=== PATIENT | male | born 1970 | race Caucasian/White ===

== ENCOUNTER 2025-03-25 15:42 | Outpatient (CLI) | payer OTHER, SELFPAY ==
--- NOTE | ~2025-03-25 | CT_ITS ---
CT sinus wo con Ordering provider: Chi Lawrence M.D. History: . J01.01 - Acute recurrent maxillary sinusitis . Comparison: None. Technique: Thin slice Scans CT of the paranasal sinuses was performed with coronal and sagittal refor matted images. No IV contrast. . Automated exposure control and iterative reconstruction technique w ere employed. The dose-length product was 315.62 mGy-cm. Findings: NASAL SEPTUM: Very mild right nasal septal deviation. OSTEOMEATAL UNITS: Bilaterally patent. NASAL TURBINATES AND NASOPHARYNX: Normal. PARANASAL SINUSES: Bilateral maxillary and ethmoid sinus disease. VISUALIZED MASTOIDS: Normal as visualized. BONES: Normal. SUPERFICIAL SOFT TISSUES/VISUALIZED BRAIN PARENCHYMA: Normal. IMPRESSION: Bilateral maxillary and ethmoid sinus. Mild right nasal septal deviation Reviewed, dictated and finalized at location A.
--- OUTSIDE RECORDS SUMMARY | 2025-03-25 15:45 | XMS_ITS | Encounter Summary ---
Author Organization [facility] Address [address] [place] [place] [address] Care Team Providers Care Shop Estimator Name Role Phone Leon Meadows MD Unavailable [phone] Ghislaine Valencia DO Primary Care Provider [phone] Encounter Details Date Type Department Care Team (Latest Contact Info) Description 03/25/2025 Travel Social History Tobacco Use Types Packs/Day Years Used Date Smoking Tobacco: Never Smokeless Tobacco: Never Alcohol Use Standard Drinks/Week Comments Yes 2 (1 standard drink = 0.6 oz pur e alcohol) PHQ-2 Answer Date Recorded Patient Health Questionnaire-2 Score 1 02/04/2025 Sex and Gender Information Value Date Recorded Sex Assigned at Male 03/25/2022 7:31 PM CDT Legal Sex Male 4:26 PM CDT Gender Identity Male 03/25/2022 7:31 PM CDT Sexual Orientation Not on file documented as of this encounter Plan of Treatment Upcoming Encounters Date Type Department Care Team (Late st Contact Info) Description 04/18/2025 9:20 AM CDT Office Visit [facility] - Dermatology [address] [place] [address], [facility] [place] [address] Joleen Maharaj MD [address] [place] [address] 3 [place] [id number] documented as of this encounter Visit Diagnoses Not on filedocumented in this encounter Care Teams Shop Estimator Relationship Specialty Start Date End Date Ghislaine Valencia DO [address] [place] [phone] PCP - General Family Medicine 10/11/24 Leon Meadows MD [address] [place] [address] Endocrinology 05/29/24 documented as of this encounter
--- OUTSIDE RECORDS SUMMARY | 2025-03-25 15:45 | XMS_ITS | Clinical Summary ---
Author Organization [facility] Address [address] [facility] [address] Care Team Providers Care Conveyor Loader Name Role Phone Leon Meadows MD Unavailable [phone] Ghislaine Valencia DO Primary Care Provider [phone] Source Comments [facility],non-owned Affiliates and Associated Physician Practices is amultiple site organization consisting of ambulatory clinics and hospital sitesin [place], [place], [place] and [place]. This disclosure is being madepursuant to the Care Everywhere program and may not contain all information available regarding this patient. Last updated 18.[facility] Allergies Active Allergy Reactions Criticality Noted Date Comments Adhesive Sensitivity Rash Medium 05/28/2020 Penicillins Urticaria,Rash Medium 05/28/2020 Medications * This document contains information received from the source organization and may not represent a complete record from that organization. * Be aware that medications may not be up to date on this document. Alwaysverify current medications with the patient. lisinopril (PRINIVIL; ZESTRIL) 30 MG tabletIndications :BMI 32.0-32.9,adult Take 1 (one) tablet by mouth once daily Active Cholecalciferol (VITAMIN D PO)Indications:BM I 32.0-32.9,adult Take 5,000 Units by mouth once daily Active atorvastatin (LIPITOR) 40 MG tablet Take 1 (one) tablet by mouth once daily 0 Active famotidine (PEPCID) 40 MG tablet Take 2 (two) tablets by mouth 2 times daily 2 Active metroNIDAZOLE (Metrogel) 0.75 % gelIndications:Ro sacea Apply to face twice daily for pimples. 30 days supply. Reasons: Rosacea 45 g 2 2 Active fluorouracil (Efudex) 5 % creamIndications: Actinic keratosis Apply to face twice daily for 2 weeks. 14 day supply. 40 g 4 Active lisdexamfetamine (Vyvanse) 50 MG capsuleIndication s:ADHD (attention deficit hyperactivity disorder) evaluation Take 1 (one) capsule by mouth every morning 30 capsule 5 Active lisdexamfetamine (Vyvanse) 50 MG capsuleIndication s:ADHD (attention deficit hyperactivity disorder) evaluation Take 1 (one) capsule by mouth every morning 30 capsule 5 03/02/20 25 Discontinu ed(Reorder ) lisdexamfetamine (Vyvanse) 50 MG capsuleIndication s:ADHD (attention deficit hyperactivity disorder) evaluation Take 1 (one) capsule by mouth every morning 30 capsule 5 03/25/20 25 Discontinu ed(Reorder ) Active Problems Problem Noted Date Diagnosed Date Low testosterone in male 07/21/2023 ADHD (attention deficit hyperactivity disorder) evaluation 02/24/2023 Chronic rhinitis 11/24/2021 HTN (hypertension) 05/31/2018 HLD (hyperlipidemia) 05/31/2018 BMI 32.0-32.9,adult 05/31/2018 Encounters * This document contains information received from the source organization and may not represent a complete record from that organization. Date Type Department Care Team Description 03/25/2025 Travel 02/04/2025 Travel 12/31/2024 Travel from Last 3 Months Immunizations Immunization Administration Dates Next Due INFLUENZA VACCINE 09/11/2021 Family History Medical History Relation Name Comments None Known Brother None Known Father None Known Maternal Aunt CAD (Coronary Artery Disease) Maternal Grandfather CAD (Coronary Artery Disease) Maternal Grandmother None Known Maternal Uncle Hypertension Mother Thyroid Disease Mother None Known Other None Known Paternal Aunt CAD (Coronary Artery Disease) Paternal Grandfather None Known Paternal Grandmother None Known Paternal Uncle None Known Sister Asthma Neg Hx CVA Neg Hx Cancer - Breast Neg Hx Cancer - Other Neg Hx Cancer - Skin, Melanoma Neg Hx Cancer - Skin, Non Melanoma Neg Hx Eczema Neg Hx Hemophilia Neg Hx Psoriasis Neg Hx Relation Name Status Comments Brother Father Maternal Aunt Maternal Grandfather Maternal Grandmother Maternal Uncle Mother Other Paternal Aunt Paternal Grandfather Paternal Grandmother Paternal Uncle Sister Social History Tobacco Use Types Packs/Day Years Used Date Smoking Tobacco: Never Smokeless Tobacco: Never Tobacco Cessation:Counseling Given: Not Answered Alcohol Use Standard Drinks/Week Comments Yes 2 (1 standard drink = 0.6 oz pur e alcohol) PHQ-2 Answer Date Recorded Patient Health Questionnaire-2 Score 1 02/04/2025 Sex and Gender Information Value Date Recorded Sex Assigned at Male 03/25/2022 7:31 PM CDT Legal Sex Male 4:26 PM CDT Gender Identity Male 03/25/2022 7:31 PM CDT Sexual Orientation Not on file Last Filed Vital Signs Vital Sign Reading Time Taken Comments Blood Pressure 135/81 02/04/2025 1:01 PM CDT Pulse 89 02/04/2025 1:01 PM CDT Temperature 35.9 C (96.7 F) 12/21/2023 1:52 PM CDT Respiratory Rate - - Oxygen Saturation 100% 02/04/2025 1:01 PM CDT Inhaled Oxygen Concentration - - Weight 105.2 kg (232 lb) 02/04/2025 1:01 PM CDT Height 195.6 cm (6' 5) 08/20/2024 9:23 AM MIXER DIAMOND POWDER Body Mass Index 27.51 08/20/2024 9:23 AM MIXER DIAMOND POWDER Plan of Treatment Upcoming Encounters Date Type Department Care Team (Late st Contact Info) Description 04/18/2025 9:20 AM CDT Office Visit [facility] - Dermatology [address] [place] [address], [place] [phone] Joleen Maharaj MD [address] [place] [address] 3 [place] [phone] Health Maintenance Due Date Last Done Comments COLOGUARD (AGES 45-75) - COL ON CA SCREENING 1969 COLON MONITORING 1969 COLONOSCOPY - COLON CA SCREENING 1969 CT COLONOGRAPHY - COLON CA SCREENING 1969 Colorectal Cancer Screening 1969 FIT - COLON CA SCREENING 1969 FLEX SIG - COLON CA SCREENING 1969 HIV SCREENING 1984 HEPATITIS C SCREENING 06/13/1987 DTAP/TDAP/TD VACCINES (1 - Tdap) 1988 HEPATITIS B VACCINE (1 of 3 - 19+ 3-dose series) 1988 PNEUMOCOCCAL VACCINE 50+ (1 of 1 - PCV) 2019 ZOSTER VACCINE (1 of 2) 2019 COVID-19 VACCINE (1 - 2023-2 5 season) 2024 SCREENING FOR DIABETES 04/01/2025 2, 04/01/2022, 05/31/2018 INFLUENZA VACCINE (#1) 2025 3, 09/11/2021 DEPRESSION SCREENING Completed 10/01/2024, 08/20/2024 HIB VACCINE Aged Out No longer eligi ble based on patient's age to complete this topic HPV VACCINE Aged Out No longer eligi ble based on patient's age to complete this topic MENINGOCOCCAL (Group B) VACCINE SHARED DECISION-MAKING Aged Out No longer eligible based on patient's age to complete this topic MENINGOCOCCAL GROUPS A/C/Y/W VACCINE Aged Out No longer eligible b ased on patient's age to complete this topic Procedures Procedure Name Priority Date/Time Associated Diagnosis Comments HEMOGLOBIN A1C - POINT OF CARE (AMB) Routine 05/31/2018 BMI 32.0-32.9,adult from Last 3 Months or Most Recently Relevant to Health Maintenance Results * HEMOGLOBIN A1C - POINT OF CARE (AMB) (05/31/2018) Hemoglobin A1c POCT 5.3 % QC Verified Yes Blood BLOOD SPECIMEN / Unknown 05/31/2018 us Poncho Rebollar MD LAB - POINT OF CARE ORDERABLES F inal Result from Last 3 Months or Most Recently Relevant to Health Maintenance Insurance [facility] Care Teams Conveyor Loader Relationship Specialty Start Date End Date Ghislaine Valencia DO [address] [place] [address] PCP - General Family Medicine 10/11/24 Leon Meadows MD [address] [place] [address] Endocrinology 05/29/24
--- OUTSIDE RECORDS SUMMARY | 2025-03-25 15:45 | XMS_ITS | Encounter Summary ---
Author Organization [facility] Address [address] [facility] [place] [address] Care Team Providers Care Tagman Name Role Phone Leon Meadows MD Unavailable [phone] Ghislaine Valencia DO Primary Care Provider Encounter Details Date Type Department Care Team (Late st Contact Info) Description 10/29/2024 Telephone [facility] - Dermatology [address] [place] [address] [place] [phone] None, Physician [address] [place] [address] Social History Tobacco Use Types Packs/Day Years Used Date Smoking Tobacco: Never Smokeless Tobacco: Never Alcohol Use Standard Drinks/Week Comments Yes 2 (1 standard drink = 0.6 oz pur e alcohol) PHQ-2 Answer Date Recorded Patient Health Questionnaire-2 Score 1 10/01/2024 Sex and Gender Information Value Date Recorded Sex Assigned at Male 03/25/2022 7:31 PM CDT Legal Sex Male 4:26 PM CDT Gender Identity Male 03/25/2022 7:31 PM CDT Sexual Orientation Not on file documented as of this encounter Miscellaneous Notes * Telephone Encounter - Tiara Tucker - 10/29/2024 8:23 AM CST left message to see if pt would like to come in earlier for the excision w/ Dr. Martinez. 1p>11a - 10/29/2024. Left direct number. ITY BILL COLLECTOR documented in this encounter Plan of Treatment Upcoming Encounters Date Type Department Care Team (Late st Contact Info) Description 04/18/2025 9:20 AM CDT Office Visit [facility] - Dermatology [address] [facility], [place] [address] Joleen Maharaj MD [address] [facility] 3L [place] [address] documented as of this encounter Visit Diagnoses Not on filedocumented in this encounter Care Teams Tagman Relationship Specialty Start Date End Date Ghislaine Valencia DO [address] [place] [address] PCP - General Family Medicine 10/11/24 Leon Meadows MD [address] [place] [address] 2L Div [place] [address] Endocrinology 05/29/24 documented as of this encounter
--- OUTSIDE RECORDS SUMMARY | 2025-03-25 15:46 | XMS_ITS | Clinical Summary ---
Author Organization [facility] Address [address] [place] [address] Care Team Providers Care Transportation Mechanic Name Role Phone Ghislaine Valencia DO Primary Care Provider [phone] Allergies Active Allergy Reactions Criticality Noted Date Comments Adhesive Rash Medium 05/28/2020 Penicillins Itching,Agitation Low 11/24/2021 Medications lisinopriL (PRINIVIL,ZESTR IL) 30 mg tablet Take 1 tablet (30 mg total) by mouth daily Active atorvastatin (LIPITOR) 40 mg tablet Take 1 tablet (40 mg total) by mouth daily 0 Active ergocalciferol, vitamin D2, (VITAMIN D2 ORAL) Take by mouth 5000iu qd Active ketoconazole (NIZORAL) 2 % shampoo prn 1 Active fluorouraciL (EFUDEX) 5 % cream Apply to thin layer to face twice daily for two weeks. Reasons: Actinic Keratosis 1 Active famotidine (PEPCID) 40 mg tablet 3 Active lisdexamfetamin e (VYVANSE) 40 mg capsule Take 1 capsule (40 mg total) by mouth early learning teacher before breakfast 5 Active buPROPion XL (WELLBUTRIN XL) 150 mg 24 hr tablet Take 1 tablet (150 mg total) by mouth daily 5 Active testosterone micronized, bulk, 100 % powder 0 5 Active Active Problems Problem Noted Date Diagnosed Date Chronic rhinitis 11/24/2021 Adverse food reaction 11/24/2021 HLD (hyperlipidemia) 05/31/2018 HTN (hypertension) 05/31/2018 Encounters Date Type Department Care Team Description 01/29/2025 1:30 PM CDT Office Visit [facility] Gastroenterology [address] [facility] Medical Office Building [address] [place] [address] Denise Denton MD Adverse food reaction, subsequent encounter (Primary Dx); Heartburn from Last 3 Months Surgical History Surgery Date Site/Laterality Comments KNEE SURGERY Medical History Medical History Date Comments Dahl's palsy Family History Medical History Relation Name Comments Thyroid disease Mother Relation Name Status Comments Mother Social History Tobacco Use Types Packs/Day Years Used Date Smoking Tobacco: Never Smokeless Tobacco: Never Tobacco Cessation:Counseling Given: Not Answered AUDIT-C Answer Date Recorded Q1: How often do you have a drink containing alc ohol? 2-3 times a week 01/29/2025 Q2: How many drinks containi ng alcohol do you have on a typical day when you are drinking? 1 or 2 01/29/2025 Q3: How often do you have si x or more drinks on one occasion? Never 01/29/2025 Sex and Gender Information Value Date Recorded Sex Assigned at Not on file Legal Sex Male 8:45 AM CDT Gender Identity Male 03/05/2025 9:46 AM CDT Sexual Orientation Straight 03/05/2025 9: 46 AM CDT Obstetrics History Last Filed Vital Signs Vital Sign Reading Time Taken Comments Blood Pressure 121/74 01/29/2025 1:14 PM CDT Pulse 72 01/29/2025 1:14 PM CDT Temperature 36.6 C (97.9 F) 01/29/2025 1:14 PM CDT Respiratory Rate 18 11/24/2021 8:34 AM GRAZING AIDE Oxygen Saturation 100% 01/29/2025 1:14 PM CDT Inhaled Oxygen Concentration - - Weight 106.6 kg (235 lb) 01/29/2025 1:14 PM CDT Height 195.6 cm (6' 5) 01/29/2025 1:14 PM CDT Body Mass Index 27.87 01/29/2025 1:14 PM CDT Plan of Treatment Health Maintenance Due Date Last Done Comments Colon Cancer Screening-Colonoscopy 1969 Depression Screening 1969 Hepatitis C Screening 1969 Prostate Cancer Screening-PSA 1969 DTaP/Tdap/Td Vaccine (1 - Tdap) 1980 Hepatitis B Screening 1987 Regular Well Visit/Exam 18-64 1987 Zoster Vaccine (1 of 2) 2019 Covid-19 Vaccine (4 - season) 2024 08/25/2021, 01/21/2021, 12/24/2020 Influenza Vaccine Completed 07/26/2024, , 09/10/2021, Additional history exists Pneumococcal vaccine <65 Aged Out No longer eligible based on patient's age to complete this topic Insurance [facility] Care Teams Transportation Mechanic Relationship Specialty Start Date End Date Ghislaine Valencia DO [address] [place] [id number] PCP - General Family Medicine 03/17/25
--- OUTSIDE RECORDS SUMMARY | 2025-03-25 15:46 | XMS_ITS | Referral Summary ---
Author Organization [facility] Address [address] [place] [address] Care Team Providers Care Taker Out Name Role Phone Ghislaine Valencia DO Primary Care Provider [phone] Encounters Date Type Department Care Team Description 01/29/2025 1:30 PM CDT Office Visit [facility] Gastroenterology [address] [place] [address] Medical Office Building [address] [place] [address] Denise Denton MD Adverse food reaction, subsequent encounter (Primary Dx); Heartburn from Last 3 Months Allergies Active Allergy Reactions Criticality Noted Date [...] 1 capsule (40 mg total) by mouth entertainment manager before breakfast 5 Active buPROPion XL (WELLBUTRIN XL) 150 mg 24 hr tablet Take 1 tablet (150 mg total) by mouth daily 5 Active testosterone micronized, bulk, 100 % powder 0 5 Active Active Problems Problem Noted Date Diagnosed Date Chronic rhinitis 11/24/2021 Adverse food reaction 11/24/2021 HLD (hyperlipidemia) 05/31/2018 HTN (hypertension) 05/31/2018 Social History Tobacco Use Types Packs/Day Years [...] Orientation Straight 03/05/2025 9: 46 AM CDT Last Filed Vital Signs Vital Sign Reading Time Taken Comments Blood Pressure 121/74 01/29/2025 1:14 PM CDT Pulse 72 01/29/2025 1:14 PM CDT Temperature 36.6 C (97.9 F) 01/29/2025 1:14 PM CDT Respiratory Rate 18 11/24/2021 8:34 AM BOX REPAIRER Oxygen Saturation 100% 01/29/2025 1:14 PM CDT Inhaled Oxygen Concentration - - Weight 106.6 kg (235 lb) 01/29/2025 1:14 PM CDT Height 195.6 cm (6' 5) 01/29/2025 1:14 PM CDT Body Mass Index 27.87 01/29/2025 1:14 PM CDT Plan of Treatment Not on file Insurance [facility] Member Subscriber Plan / Payer (Ef fective 2017-Present) Name:Jeffy Yoo Relation to Subscriber:Self Name:Jeffy Yoo Payer ID:[id number] (NAIC) Type:MEDICAID RISK OTHER Address: [place] [id number] Care Teams Taker Out Relationship Specialty Start Date End Date Ghislaine Valnecia DO [address] [place] [address] PCP - General Family Medicine 03/17/25
--- OUTSIDE RECORDS SUMMARY | 2025-03-25 15:46 | XMS_ITS | Encounter Summary ---
Author Organization [facility] Address [address] [place] [address] Phone Care Team Providers Care Clay Digger Name Role Phone Adolfo Carnes Primary Care Provider [phone] Jeanie Chan MD Primary Care Provider [phone] Adolfo Carnes Primary Care Provider [phone] No, Physician Primary Care Provider Ghislaine Valencia DO Primary Care Provider Encounter Details Date Type Department Care Team (Late st Contact Info) Description 06/22/2021 Orders Only [facility] Scanning, Provider Social History Tobacco Use Types Packs/Day Years Used Date Smoking Tobacco: Never Assessed Sex and Gender Information Value Date Recorded Sex Assigned at Not on file Legal Sex Male 8:45 AM CDT Gender Identity Male 03/05/2025 9:46 AM CDT Sexual Orientation Straight 03/05/2025 9: 46 AM CDT documented as of this encounter Plan of Treatment Not on file documented as of this encounter Procedures Procedure Name Priority Date/Time Associated Diagnosis Comments GI - RESULT 06/22/2021 documented in this encounter Results * GI - RESULT (06/22/2021) Anatomical Region Laterality Modality Other us Provider Scanning Final Result documented in this encounter Visit Diagnoses Not on filedocumented in this encounter Care Teams Clay Digger Relationship Specialty Start Date End Date Adolfo Carnes PA PCP - General Physician Gumming Machine Operator 09/13/21 11/24/21 Jeanie Chan MD [address] [facility] [address] [place] [address] PCP - General 11/25/21 03/10/22 Adolfo Carnes PA PCP - General Physician Gumming Machine Operator 03/11/22 06/20/24 No, Physician PCP - General 01/29/25 03/16/25 Ghislaine Valencia DO [address] [place] [address] PCP - General Family Medicine 03/17/25 documented as of this encounter
== END 2025-03-25 15:43 | disposition home or self-care (01) ==
PROVIDERS: PCP Family Medicine; Visit Provider Otolaryngology
DX: J01.01 Acute recurrent maxillary sinusitis (principal); J30.9 Allergic rhinitis, unspecified; J34.2 Deviated nasal septum
CPT/HCPCS: 70486

== ENCOUNTER 2025-04-22 15:22 | Outpatient (NON) | payer OTHER, SELFPAY ==
--- OUTSIDE RECORDS SUMMARY | 2025-04-22 15:25 | XMS_ITS | Encounter Summary ---
Author Organization [facility] Address [address] [place] [address] Phone Care Team Providers Care Can Piler Name Role Phone Adolfo Carnes Primary Care Provider [phone] Jeanie Chan MD Primary Care Provider Adolfo Carnes Primary Care Provider [phone] No, Physician Primary Care Provider Ghislaine Valencia DO Primary Care Provider [phone] Encounter Details Date Type Department Care Team [...] on filedocumented in this encounter Care Teams Can Piler Relationship Specialty Start Date End Date Adolfo Carnes PA PCP - General Physician Commercial Attache 09/13/21 11/24/21 Jeanie Chan MD [address] [facility] [address] [place] [address] PCP - General 11/25/21 03/10/22 Adolfo Carnes PA PCP - General Physician Commercial Attache 03/11/22 06/20/24 No, Physician PCP - General 01/29/25 03/16/25 Ghislaine Valencia DO [address] [place] [address] PCP - General Family Medicine 03/17/25 documented as of this encounter
--- OUTSIDE RECORDS SUMMARY | 2025-04-22 15:25 | XMS_ITS | Referral Summary ---
Author Organization [facility] Address [address] [place] [address] Care Team Providers Care Merchandise Buyer Name Role Phone Ghislaine Valencia DO Primary Care Provider [phone] Encounters Date Type Department Care Team Description 01/29/2025 1:30 PM CDT Office Visit [facility] Gastroenterology [address] [place] [address] Medical Office Building [address] [place] [address] Denise Denton MD Adverse food [...] 1 capsule (40 mg total) by mouth cds sales advisor before breakfast 5 Active buPROPion XL (WELLBUTRIN [...] CDT Respiratory Rate 18 11/24/2021 8:34 AM MEDIA PLANNER / BUYER Oxygen Saturation 100% 01/29/2025 1:14 PM CDT Inhaled Oxygen Concentration - - Weight 106.6 kg (235 lb) 01/29/2025 1:14 PM CDT Height 195.6 cm (6' 5) 01/29/2025 1:14 PM CDT Body Mass Index 27.87 01/29/2025 1:14 PM CDT Plan of Treatment Not on file Insurance [facility] Member Subscriber Plan / Payer (Ef fective 2017-Present) Name:Jeffy Yoo Relation to Subscriber:Self Name:Jeffy Yoo Payer ID:[id number] (NAIC) Type:MEDICAID RISK OTHER Address: [place] [id number] Care Teams Merchandise Buyer Relationship Specialty Start Date End Date Ghislaine Valencia DO [address] [place] [address] PCP - General Family Medicine 03/17/25
--- OUTSIDE RECORDS SUMMARY | 2025-04-22 15:25 | XMS_ITS | Encounter Summary ---
Author Organization [facility] Address [address] [facility] [place] [address] Care Team Providers Care Debug Technician Name Role Phone Leon Meadows MD Unavailable [phone] Ghislaine Valencia DO Primary Care Provider [phone] Encounter Details Date Type Department Care Team (Late st Contact Info) Description 10/29/2024 Telephone [facility] - Dermatology [address] [place] [address] [place] [id number] None, Physician [address] [place] [address] Social History Tobacco Use Types Packs/Day Years [...] Martinez. 1p>11a - 10/29/2024. Left direct number. UATOR documented in this encounter Plan of Treatment Upcoming Encounters Date Type Department Care Team (Late st Contact Info) Description 10/03/2025 10:40 AM EVALUATOR Office Visit [facility] - Dermatology [address] [facility], [place] [phone] Joleen Maharaj MD [address] [facility] 3L [place] [phone] documented as of this encounter Visit Diagnoses Not on filedocumented in this encounter Care Teams Debug Technician Relationship Specialty Start Date End Date Ghislaine Valencia DO [address] [place] [id number] PCP - General Family Medicine 10/11/24 Leon Meadows MD [address] [place] [address] 2L [place] [address] Endocrinology 05/29/24 documented as of this encounter
--- OUTSIDE RECORDS SUMMARY | 2025-04-22 15:25 | XMS_ITS | Clinical Summary ---
Author Organization [facility] Address [address] [place] [address] Care Team Providers Care Washtub Worker Name Role Phone Ghislaine Valencia DO Primary Care Provider [phone] Allergies Active Allergy Reactions Criticality Noted Date [...] Description 01/29/2025 1:30 PM CDT Office Visit [facility] Gastroenterology [address] [facility] Medical Office Building [address] [place] [address] Denise Denton MD Adverse food [...] CDT Respiratory Rate 18 11/24/2021 8:34 AM PRINT BINDING WORKER Oxygen Saturation 100% 01/29/2025 1:14 PM CDT [...] season) 2024 08/25/2021, 01/21/2021, 12/24/2020 Influenza Vaccine (#1) 2025 , 09/11/2021, 09/10/2021, Additional history exists Pneumococcal vaccine <65 Aged Out No longer eligible based on patient's age to complete this topic Insurance [facility] Member Subscriber Plan / Payer (Ef fective 2017-Present) Name:Jeffy Yoo Relation to Subscriber:Self Name:Jeffy Yoo Payer ID:[id number] (NAIC) Type:MEDICAID RISK OTHER Address: [place] [id number] [facility] Care Teams Washtub Worker Relationship Specialty Start Date End Date Ghislaine Valencia DO [address] [place] [address] PCP - General Family Medicine 03/17/25
--- OUTSIDE RECORDS SUMMARY | 2025-04-22 15:25 | XMS_ITS | Clinical Summary ---
Author Organization [facility] Address [address] [place] [address] Care Team Providers Care Real Estate Attorney Name Role Phone Leon Meadows MD Unavailable [phone] Ghislaine Valencia DO Primary Care Provider [phone] [facility],non-owned Affiliates and Associated Physician Practices is amultiple site organization consisting of ambulatory clinics and hospital sitesin [place], [place], [place] and [place]. This disclosure is being madepursuant to the Care Everywhere program and may not contain all information available regarding this patient. Last updated 18.[facility] Allergies Active Allergy Reactions Criticality Noted [...] organization. Date Type Department Care Team Description 04/18/2025 9:20 AM CDT Office Visit [facility] - Dermatology [address] [place] [address] [place] [address] Joleen Maharaj MD Neoplasm of uncertain behavior of skin (Primary Dx); History of basal cell carcinoma; Actinic keratosis; Lentigines; Multiple benign nevi of upper extremity, lower extremity, and trunk; Seborrheic keratoses 04/18/2025 Travel 03/25/2025 Travel 02/04/2025 Travel from Last 3 Months Immunizations Immunization [...] Answer Date Recorded Patient Health Questionnaire-2 Score 2 03/25/2025 Sex and Gender Information Value Date Recorded [...] 195.6 cm (6' 5) 08/20/2024 9:23 AM GLASS SAGGER Body Mass Index 27.51 08/20/2024 9:23 AM GLASS SAGGER Plan of Treatment Upcoming Encounters Date Type Department Care Team (Late st Contact Info) Description 10/03/2025 10:40 AM GLASS SAGGER Office Visit [facility] - Dermatology [address] [place] [address], [place] [address] Joleen Maharaj MD [address] [place] [address] [address] [place] [phone] Health Maintenance Due Date Last Done Comments [...] Procedure Name Priority Date/Time Associated Diagnosis Comments TN TANGNTL BX SKIN SINGLE LES Routine 04/18/2025 12:05 PM CDT Neoplasm of uncertain behavior of skin TN DESTROY PREMALIG LESION, 2-14 Routine 04/18/2025 12:04 PM CDT Actinic keratosis TN DESTROY PREMALIG LESION, 1ST LESION Routine 04/18/2025 12:04 PM CDT Actinic keratosis DERMATOPATHOLOGY Routine 04/18/2025 10:0 0 AM CDT Neoplasm of uncertain behavior of skin HEMOGLOBIN A1C - POINT OF CARE (AMB) Routine 05/31/2018 BMI 32.0-32.9,adult from Last 3 Months or Most Recently Relevant to Health Maintenance Results * DERMATOPATHOLOGY (04/18/2025 10:00 AM CDT) Case Report Dermatopathology Report Case: [id number] Authorizing Provider: Joleen Maharaj, Collected: 04/18/2025 10:00 AM Ordering Location: [facility] - Received: 04/18/2025 10:00 AM Dermatology Pathologist: Johanna Rubio MD Specimen: Skin, left cheek 2:48 PM CDT DERMATOPATHOLOGY LABORATORY Final Diagnosis Specimen A. 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 The specimen consists of a shave biopsy measuring 8x5x1 mm. Jar 0. 2:48 PM CDT DERMATOPATHOLOGY LABORATORY Microscopic Description Specimen A. SKIN, left cheek: The epidermis shows parakeratosis, full thickness disorderly maturation of keratinocytes, mitoses at different levels, and dyskeratotic cells. In some foci, there is loss of cohesion between the neoplastic cells, as well as individual dyskeratotic cells that lack intercellular bridges. 2:48 PM CDT DERMATOPATHOLOGY LABORATORY Disclaimer An external and internal positive and negative controls are appropriate for the histochemical, immunohistochemical and immunofluorescence stain(s) in this case (if any), except where stated explicitly. The performance characteristics of the stain(s) cited in this report were developed and its performance characteristic determined by the Dermatopathology Laboratory at [facility], directed by Dr. Regine He. These tests need not be, and therefore are not, approved by the [place] Food and Drug Administration. The tests are used for clinical purposes. Billing Codes Specimen Charges Stain Charges 45355 1 2:48 PM CDT DERMATOPATHOLOGY LABORATORY Embedded Images 2:48 PM CDT DERMATOPATHOLOGY LABORATORY Pathology/Cytolo gy TISSUE SPECIMEN FROM SKIN / Unknown Collection / Unknown 04/18/2025 10:00 AM CDT 04/18/2025 10:00 AM CDT us Joleen Maharaj MD LAB - PATHOLOGY/CYTOLO GY ORDERABLES Final Result DERMATOPATHOLOGY LABORATORY [facility] - Department of Dermatology [address] [place] [place] [id number] [place] [address] * HEMOGLOBIN A1C - POINT OF CARE (AMB) (05/31/2018) Hemoglobin A1c POCT 5.3 % QC Verified Yes Blood BLOOD SPECIMEN / Unknown 05/31/2018 us Poncho Rebollar MD LAB - POINT OF CARE ORDERABLES F inal Result from Last 3 Months or Most Recently Relevant to Health Maintenance Insurance [facility] Care Teams Real Estate Attorney Relationship Specialty Start Date End Date Ghislaine Valencia DO [address] [place] [address] PCP - General Family Medicine 10/11/24 Leon Meadows MD [address] [place] [address] Endocrinology 05/29/24
== END 2025-04-22 15:23 | disposition home or self-care (01) ==
LOC: ANHGOSHLAB 15:23
PROVIDERS: PCP Family Medicine; Visit Provider Otolaryngology
DX: J32.2 Chronic ethmoidal sinusitis (principal); J01.01 Acute recurrent maxillary sinusitis
CPT/HCPCS: 87070; 87101

== ENCOUNTER 2025-05-21 09:37 | Outpatient (NON) | payer OTHER, SELFPAY ==
--- OUTSIDE RECORDS SUMMARY | 2025-05-21 09:53 | XMS_ITS | Clinical Summary ---
Author Organization [facility] Address [address] [place] [address] Care Team Providers Care Sat Tutor Name Role Phone Ghislaine Valencia DO Primary Care Provider [phone] Allergies Active Allergy Reactions Criticality Noted Date Comments Adhesive Rash Medium 05/28/2020 Penicillins Itching,Agitation Low 11/24/2021 Medications lisinopriL (PRINIVIL,ZESTR IL) 30 mg tablet Take 1 tablet (30 mg total) by mouth daily Active atorvastatin (LIPITOR) 40 mg tablet Take 1 tablet (40 mg total) by mouth daily 05/03/20 20 Active ergocalciferol, vitamin D2, (VITAMIN D2 ORAL) Take by mouth 5000iu qd Active ketoconazole (NIZORAL) 2 % shampoo prn 09/10/20 21 Active fluorouraciL (EFUDEX) 5 % cream Apply to thin layer to face twice daily for two weeks. Reasons: Actinic Keratosis 06/04/20 21 Active lisdexamfetamin e (VYVANSE) 40 mg capsule Take 1 capsule (40 mg total) by mouth heavy repairer before breakfast 01/01/20 25 Active buPROPion XL (WELLBUTRIN XL) 150 mg 24 hr tablet Take 1 tablet (150 mg total) by mouth daily 01/01/20 25 Active testosterone micronized, bulk, 100 % powder 0 12/25/19 25 Active cetirizine (ZyrTEC) 10 mg tabletIndicatio ns:Allergic rhinitis, unspecified seasonality, unspecified trigger Take 1 tablet (10 mg total) by mouth 3 (three) times a day 90 tablet 1 05/06/20 25 Active famotidine (PEPCID) 20 mg tabletIndicatio ns:Allergic rhinitis, unspecified seasonality, unspecified trigger Take 1 tablet (20 mg total) by mouth 2 (two) times a day 60 tablet 3 05/06/20 25 026 Active famotidine (PEPCID) 40 mg tablet 11/17/19 23 025 Discontinued cetirizine (ZyrTEC) 10 mg tablet Take 1 tablet (10 mg total) by mouth daily 025 Discontinued Active Problems Problem Noted Date Diagnosed Date Chronic rhinitis 11/24/2021 Adverse food reaction 11/24/2021 HLD (hyperlipidemia) 05/31/2018 HTN (hypertension) 05/31/2018 Encounters Date Type Department Care Team Description 05/12/2025 Results Follow-Up [facility] [place] [address] [facility] [address] [place] [phone] Jeyson Calhoun MD PhD CBC with auto differential, Comprehensive metabolic panel, Tryptase, Additional followed-up results: 30 05/06/2025 3:15 PM CDT Lab [facility] at the [address] [phone] 05/06/2025 3:00 PM CDT Lab [facility] at [address] [phone] Allergic rhinitis, unspecified seasonality, unspecified trigger; Brain fog; Fatigue, unspecified type 05/06/2025 2:00 PM CDT Office Visit [facility] [address] [place] [phone] Jeyson Calhoun MD PhD Brain fog (Primary Dx); Fatigue, unspecified type; Allergic rhinitis, unspecified seasonality, unspecified trigger; Allergic conjunctivitis of both eyes 05/05/2025 Telephone [facility] [address] [place] [phone] Jeyson Calhoun MD PhD from Last 3 Months Immunizations Immunization Administration Dates Next Due Influenza, Quadrivalent, Spl it, Intramuscular 07/08/2019 Influenza, Quadrivalent, Spl it, Preservative Free, Intramuscular 07/21/2023,08/24/2022,09/10/2021 Influenza, Trivalent, Preser vative Free, Intramuscular 07/30/2024 Influenza, Unspecified 07/26/2024,09/11/2021 ZOSTER Recombinant 03/06/2024,01/04/2024 Surgical History Surgery Date Site/Laterality Comments KNEE [...] Sign Reading Time Taken Comments Blood Pressure 137/83 05/06/2025 1:42 PM CDT Pulse 80 05/06/2025 1:42 PM CDT Temperature 36.4 C (97.6 F) 05/06/2025 1:42 PM CDT Respiratory Rate 18 11/24/2021 8:34 AM 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 Saturation 100% 05/06/2025 1:42 PM CDT Inhaled Oxygen Concentration - - Weight 99.3 kg (219 lb) 05/06/2025 1:42 PM CDT Height 195.6 cm (6' 5) 05/06/2025 1:42 PM CDT Body Mass Index 25.97 05/06/2025 1:42 PM CDT Plan of Treatment Health Maintenance Due Date Last Done Comments Colon Cancer Screening-Colonoscopy 1969 Depression Screening 1969 Hepatitis C Screening 1969 Prostate Cancer Screening-PSA 1969 DTaP/Tdap/Td Vaccine (1 - Tdap) 1980 Hepatitis B Screening 1987 Regular Well Visit/Exam 18-64 1987 Covid-19 Vaccine ( - 2023- season) 2024 07/20/2023, 05/05/2022, 08/25/2021, Additional history exists Influenza Vaccine (#1) 2025 , 07/26/2024, 07/21/2023, Additional history exists Zoster Vaccine Completed 03/06/2024, 01/04/2024 Pneumococcal vaccine <65 Aged Out No longer eligible based on patient's age to complete this topic Procedures Procedure Name Priority Date/Time Associated Diagnosis Comments BLOOD MISC TO [place] Routine 05/06/2025 3: 17 PM CDT Brain fog EGFR Routine 05/06/2025 3:16 PM CDT Fatigue, unspecified type Brain fog DIFFERENTIAL AUTO Routine 05/06/2025 3:1 6 PM CDT Fatigue, unspecified type Brain fog TRYPTASE Routine 05/06/2025 3:16 PM CDT Fatigue, unspecified type Brain fog COMPREHENSIVE METABOLIC PANEL Routine 05/06/2025 3:16 PM CDT Fatigue, unspecified type Brain fog CBC WITH AUTO DIFFERENTIAL Routine 05/06/2025 3:16 PM CDT Fatigue, unspecified type Brain fog ALLERGEN BIRCH COMMON SILVER (TREE) IGE Routine 05/06/2025 3:16 PM CDT Allergic rhinitis, unspecified seasonality, unspecified trigger ALLERGEN ELM (TREE) IGE Routine 05/06/20 25 3:16 PM CDT Allergic rhinitis, unspecified seasonality, unspecified trigger ALLERGEN MAPLE/BOX ELDER (TREE) IGE Routine 05/06/2025 3:16 PM CDT Allergic rhinitis, unspecified seasonality, unspecified trigger ALLERGEN MOUNTAIN JUNIPER (TREE) IGE Routine 05/06/2025 3:16 PM CDT Allergic rhinitis, unspecified seasonality, unspecified trigger ALLERGEN MULBERRY (TREE) IGE Routine 05/06/2025 3:16 PM CDT Allergic rhinitis, unspecified seasonality, unspecified trigger ALLERGEN OAK RED (TREE) IGE Routine 05/06/2025 3:16 PM CDT Allergic rhinitis, unspecified seasonality, unspecified trigger ALLERGEN SYCAMORE SOUTH AFRICAN (TREE) IGE Routine 05/06/2025 3:16 PM CDT Allergic rhinitis, unspecified seasonality, unspecified trigger ALLERGEN WALNUT (TREE) IGE Routine 05/06/2025 3:16 PM CDT Allergic rhinitis, unspecified seasonality, unspecified trigger ALLERGEN BERMUDA GRASS (GRASS) IGE Routine 05/06/2025 3:16 PM CDT Allergic rhinitis, unspecified seasonality, unspecified trigger ALLERGEN MELIDA GRASS (GRASS) IGE Routine 05/06/2025 3:16 PM CDT Allergic rhinitis, unspecified seasonality, unspecified trigger ALLERGEN ROBERTO GRASS (GRASS) IGE Routine 05/06/2025 3:16 PM CDT Allergic rhinitis, unspecified seasonality, unspecified trigger ALLERGEN PLANTAIN MONGOLIAN (WEED) IGE Routine 05/06/2025 3:16 PM CDT Allergic rhinitis, unspecified seasonality, unspecified trigger ALLERGEN BLANCO'S QUARTER (WEED) IGE Routine 05/06/2025 3:16 PM CDT Allergic rhinitis, unspecified seasonality, unspecified trigger ALLERGEN PIGWEED ROUGH (WEED) IGE Routine 05/06/2025 3:16 PM CDT Allergic rhinitis, unspecified seasonality, unspecified trigger ALLERGEN RAGWEED SHORT/COMMON (WEED) IGE Routine 05/06/2025 3:16 PM CDT Allergic rhinitis, unspecified seasonality, unspecified trigger ALLERGEN NETTLE (WEED) IGE Routine 05/06/2025 3:16 PM CDT Allergic rhinitis, unspecified seasonality, unspecified trigger ALLERGEN ALTERNARIA TENUIS (MOLD) IGE Routine 05/06/2025 3:16 PM CDT Allergic rhinitis, unspecified seasonality, unspecified trigger ALLERGEN ASPERGILLUS FUMIGATUS (MOLD) IGE Routine 05/06/2025 3:16 PM CDT Allergic rhinitis, unspecified seasonality, unspecified trigger ALLERGEN CLADOSPORIUM HERBARUM (MOLD) IGE Routine 05/06/2025 3:16 PM CDT Allergic rhinitis, unspecified seasonality, unspecified trigger ALLERGEN PENICILLIUM CHRYSOGENUM (MOLD) IGE Routine 05/06/2025 3:16 PM CDT Allergic rhinitis, unspecified seasonality, unspecified trigger ALLERGEN EPITHELIA/DANDER CAT (ANIMAL) IGE Routine 05/06/2025 3:16 PM CDT Allergic rhinitis, unspecified seasonality, unspecified trigger ALLERGEN COCKROACH SOUTH AFRICAN (INSECT) IGE Routine 05/06/2025 3:16 PM CDT Allergic rhinitis, unspecified seasonality, unspecified trigger ALLERGEN DERMATOPHAGOIDES FARINAE (INSECT) IGE Routine 05/06/2025 3:16 PM CDT Allergic rhinitis, unspecified seasonality, unspecified trigger ALLERGEN DERMATOPHAGOIDES PTERONYSSINUS (INSECT) IGE Routine 05/06/2025 3:16 PM CDT Allergic rhinitis, unspecified seasonality, unspecified trigger ALLERGEN EPITHELIA/DANDER DOG (ANIMAL) IGE Routine 05/06/2025 3:16 PM CDT Allergic rhinitis, unspecified seasonality, unspecified trigger ALLERGEN MOUSE MIX (ANIMAL) IGE Routine 05/06/2025 3:16 PM CDT Allergic rhinitis, unspecified seasonality, unspecified trigger ALLERGEN RAT MIX (ANIMAL) IGE Routine 05/06/2025 3:16 PM CDT Allergic rhinitis, unspecified seasonality, unspecified trigger from Last 3 Months Results * BLOOD MISC TO [place] (05/06/2025 3:17 PM CDT) Test name, chem FHSPL HISTAMINE, PLASMA [place] [facility] Misc See Comment [facility] Comment:Credited, collection error. Blood 05/06/2025 3:17 PM CDT 05/06/2025 5:33 PM CDT Jeyson Calhoun MD PhD LAB BLOOD ORD ERABLES Final Result [facility] Department [place] [employer] [place] [address] [place] [facility] * Allergen Rat mix (animal) IgE (05/06/2025 3:16 PM CDT) [facility] Rat mix IgE <0.10 0.00 - 0.34 kUnits/L Blood 05/06/2025 3:16 PM CDT 05/06/2025 5:32 PM CDT Jeyson Calhoun MD PhD LAB BLOOD ORD ERABLES Final Result [facility] [employer] [address] * Allergen Mouse mix (animal) IgE (05/06/2025 3:16 PM CDT) Mouse mix IgE <0.10 0.00 - 0.34 kUnits/L Blood 05/06/2025 3:16 PM CDT 05/06/2025 5:32 PM CDT Jeyson Calhoun MD PhD LAB BLOOD ORD ERABLES Final Result Performing Organization Address City/[facility] Co de Phone Number [facility] [place] [address] * eGFR (05/06/2025 3:16 PM CDT) eGFR 64 >=60 mL/min/1. 73 m2 Comment: Interpretive Data Reference Interval Normal >/= 90 mL/min/1.73m2 Mildly decreased* 60 - 89 mL/min/1.73m2 Mildly to moderately decreased 45 - 59 mL/min/1.73m2 Moderately to severely decreased 30 - 44 mL/min/1.73m2 Severely decreased 15 - 29 mL/min/1.73m2 Kidney Failure < 15 mL/min/1.73m2 *Relative to young adult level Estimated glomerular filtration rate is determined by the 2020 CKD-EPI equation recommended by the National Kidney Foundation (A Unifying Approach to GFR Estimation: Recommendations of the NKF-ASK Task Force on Reassessing the Inclusion of Race in Diagnosing Kidney Disease, JASN 2020). The CKD-EPI equation should not be used for patients with unstable renal function and has not been validated in children and those over 70. Current interpretive data was last reviewed 2021. Blood 05/06/2025 3:16 PM CDT 05/06/2025 5:42 PM CDT Jeyson Calhoun MD PhD LAB BLOOD ORD ERABLES Final Result [facility] Department [place] [address] * Differential, auto (05/06/2025 3:16 PM CDT) Neutrophil abs 5.88 1.50 - 6.50 K/cumm Imm gran abs 0.05 0.00 - 0.10 K/cumm [facility] Lymphocyte abs 2.39 0.80 - 3.30 K/cumm [facility] Monocyte abs 0.67 0.20 - 0.80 K/cumm [facility] Eosinophil abs 0.12 0.00 - 0.50 K/cumm [facility] Basophil abs 0.04 0.00 - 0.10 K/cumm [facility] Neutrophil pct 64.4 % [facility] Comment: Interpretive Data Percent cell count reference ranges are not reported, since discordance with absolute values may lead to misinterpretation of CBC data. Current Interpretive Data was last revised on 2018. Imm gran pct 0.5 % [facility] Comment: Interpretive Data Percent cell count reference ranges are not reported, since discordance with absolute values may lead to misinterpretation of CBC data. Current Interpretive Data was last revised on 2018. Lymphocyte pct 26.1 % [facility] Comment: Interpretive Data Percent cell count reference ranges are not reported, since discordance with absolute values may lead to misinterpretation of CBC data. Current Interpretive Data was last revised on 2018. Monocyte pct 7.3 % [facility] Comment: Interpretive Data Percent cell count reference ranges are not reported, since discordance with absolute values may lead to misinterpretation of CBC data. Current Interpretive Data was last revised on 2018. Eosinophil pct 1.3 % [facility] Comment: Interpretive Data Percent cell count reference ranges are not reported, since discordance with absolute values may lead to misinterpretation of CBC data. Current Interpretive Data was last revised on 2018. Basophil pct 0.4 % [facility] Comment: Interpretive Data Percent cell count reference ranges are not reported, since discordance with absolute values may lead to misinterpretation of CBC data. Current Interpretive Data was last revised on 2018. Blood 05/06/2025 3:16 PM CDT 05/06/2025 5:32 PM CDT us Jeyson Calhoun MD PhD LAB BLOOD ORD ERABLES Final Result [facility] Department [place] [address] * Allergen Penicillium chrysogenum (mold) IgE (05/06/2025 3:16 PM CDT) Penicillium chrysogenum IgE <0.10 0.00 - 0.34 kUnits/L Blood 05/06/2025 3:16 PM CDT 05/06/2025 5:32 PM CDT Jeyson Calhoun MD PhD LAB BLOOD [place] [address] * Allergen Tucson (tree) IgE (05/06/2025 3:16 PM CDT) [place]son IgE <0.10 0.00 - 0.34 kUnits/L Blood 05/06/2025 3:16 PM CDT 05/06/2025 5:32 PM CDT Jeyson Calhoun MD PhD LAB BLOOD ORD ERABLES Final Result [facility] Department [place] [address] * Allergen Mountain juniper (tree) IgE (05/06/2025 3:16 PM CDT) Mountain juniper IgE <0.10 0.00 - 0.34 kUnits/L Blood 05/06/2025 3:16 PM CDT 05/06/2025 5:32 PM CDT us Jeyson Calhoun MD PhD LAB BLOOD ORD ERABLES Final Result [facility] Department [place] [address] * CBC with auto differential (05/06/2025 3:16 PM CDT) WBC 9.15 3.80 - 9.90 K/cumm Hgb 14.8 13.0 - 17.5 g/dL [facility] Hct 43.3 38.9 - 50.3 % [facility] Plt 249 150 - 400 K/cumm [facility] MPV 9.9 9.1 - 12.3 fL [facility] RBC 4.78 4.30 - 5.80 M/cumm [facility] MCV 90.6 81.3 - 96.4 fL [facility] MCH 31.0 27.1 - 33.3 pg [facility] MCHC 34.2 32.3 - 35.7 g/dL [facility] RDW CV 12.8 11.1 - 14.9 % [facility] RDW SD 42.5 35.7 - 48.1 fL [facility] NRBC abs 0.00 0.00 - 0.01 K/cumm [facility] Blood 05/06/2025 3:16 PM CDT 05/06/2025 5:32 PM CDT Jeyson Calhoun MD PhD LAB BLOOD ORD ERABLES Final Result [facility] Department [place] [address] * Tryptase (05/06/2025 3:16 PM CDT) Tryptase Level 4.6 <11.5 ng/mL [facility] Comment: Test Performed by: [address] [address] [employer]iotelegraph Operator: Lobito Penaloza Ph.D.; CLIA# [id number] Blood 05/06/2025 3:16 PM CDT 05/06/2025 8:13 PM CDT Jeyson Calhoun MD PhD LAB BLOOD ORD ERABLES Final Result Performing Organization Address City/[facility] Co de Phone Number [facility] Department [place] [address] [facility] ref [facility] * Allergen Bermuda grass (grass) IgE (05/06/2025 3:16 PM CDT) Bermuda grass IgE <0.10 0.00 - 0.34 kUnits/L Blood 05/06/2025 3:16 PM CDT 05/06/2025 5:32 PM CDT Jeyson Calhoun MD PhD LAB BLOOD ORD ERABLES Final Result Performing Organization Address [facility] Co de Phone Number [facility] Department [place] [address] * Allergen Plantain thai (weed) IgE (05/06/2025 3:16 PM CDT) Plantain thai IgE <0.10 0.00 - 0.34 kUnits/L Blood 05/06/2025 3:16 PM CDT 05/06/2025 5:32 PM CDT us Jeyson Calhoun MD PhD LAB BLOOD ORD ERABLES Final Result Performing Organization Address City/[facility] Co de Phone Number [facility] Department [place] [address] * Allergen Elm (tree) IgE (05/06/2025 3:16 PM CDT) Elm IgE <0.10 0.00 - 0.34 kUnits/L Blood 05/06/2025 3:16 PM CDT 05/06/2025 5:32 PM CDT us Jeyson Calhoun MD PhD LAB BLOOD ORD ERABLES Final Result Performing Organization Address [facility] Co de Phone Number [facility] [place] [address] * Allergen Cladosporium herbarum (mold) IgE (05/06/2025 3:16 PM CDT) Cladosporium herbarum IgE <0.10 0.00 - 0.34 kUnits/L Blood 05/06/2025 3:16 PM CDT 05/06/2025 5:32 PM CDT Jeyson Calhoun MD PhD LAB BLOOD ORD ERABLES Final Result Performing Organization Address [facility] Co de Phone Number [facility] Department [place] [address] * Allergen Birch common silver (tree) IgE (05/06/2025 3:16 PM CDT) Birch common silver IgE <0.10 0.00 - 0.34 kUnits/L Blood 05/06/2025 3:16 PM CDT 05/06/2025 5:32 PM CDT Jeyson Calhoun MD PhD LAB BLOOD ORD ERABLES Final Result Performing Organization Address City/[facility] Co de Phone Number [facility] Department [place] [address] * Allergen Alternaria tenuis (mold) IgE (05/06/2025 3:16 PM CDT) Alternaria tenius IgE <0.10 0.00 - 0.34 kUnits/L Blood 05/06/2025 3:16 PM CDT 05/06/2025 5:32 PM CDT Jeyson Calhoun MD PhD LAB BLOOD ORD ERABLES Final Result Performing Organization Address City/[facility]/ZIP Co de Phone Number [facility] [place] [address] * Allergen Aspergillus fumigatus (mold) IgE (05/06/2025 3:16 PM CDT) Aspergillus fumigatus IgE <0.10 0.00 - 0.34 kUnits/L Blood 05/06/2025 3:16 PM CDT 05/06/2025 5:32 PM CDT Jeyson Calhoun MD PhD LAB BLOOD ORD ERABLES Final Result Performing Organization Address [facility] Co de Phone Number [facility] [place] [address] * Allergen Dermatophagoides pteronyssinus (insect) IgE (05/06/2025 3:16 PM CDT) Dermatophyton pteronyssinus IgE <0.10 0.00 - 0.34 kUnits/L Blood 05/06/2025 3:16 PM CDT 05/06/2025 5:32 PM CDT us Jeyson Calhoun MD PhD LAB BLOOD ORD ERABLES Final Result Performing Organization Address City/[facility]/ZIP Co de Phone Number [facility] Department [place] [address] * Allergen Dermatophagoides farniae (insect) IgE (05/06/2025 3:16 PM CDT) Dermatophyton farinae IgE <0.10 0.00 - 0.34 kUnits/L Blood 05/06/2025 3:16 PM CDT 05/06/2025 5:32 PM CDT Jeyson Calhoun MD PhD LAB BLOOD ORD ERABLES Final Result Performing Organization Address [facility] Co de Phone Number [facility] [place] [address] * Allergen Epithelia/dander dog (animal) IgE (05/06/2025 3:16 PM CDT) Dog dander IgE <0.10 0.00 - 0.34 kUnits/L Blood 05/06/2025 3:16 PM CDT 05/06/2025 5:32 PM CDT Jeyson Calhoun MD PhD LAB BLOOD ORD ERABLES Final Result Performing Organization Address [facility] de Phone Number [facility] [place] [address] * Allergen Cockroach sammarinese (insect) IgE (05/06/2025 3:16 PM CDT) Cockroach IgE <0.10 0.00 - 0.34 kUnits/L Blood 05/06/2025 3:16 PM CDT 05/06/2025 5:32 PM CDT Jeyson Calhoun MD PhD LAB BLOOD ORD ERABLES Final Result Performing Organization Address City/[facility] Co de Phone Number [facility] [place] [address] * Allergen Epithelia/dander cat (animal) IgE (05/06/2025 3:16 PM CDT) Cat dander IgE <0.10 0.00 - 0.34 kUnits/L Blood 05/06/2025 3:16 PM CDT 05/06/2025 5:32 PM CDT Jeyson Calhoun MD PhD LAB BLOOD ORD ERABLES Final Result Performing Organization Address [facility] Co de Phone Number [facility] [place] [address] * Allergen Ragweed short/common (weed) IgE (05/06/2025 3:16 PM CDT) Ragweed common IgE <0.10 0.00 - 0.34 kUnits/L Blood 05/06/2025 3:16 PM CDT 05/06/2025 5:32 PM CDT Jeyson Calhoun MD PhD LAB BLOOD ORD ERABLES Final Result Performing Organization Address [facility] Co de Phone Number [facility] [place] [address] * Allergen Pigweed, rough (weed) IgE (05/06/2025 3:16 PM CDT) Pigweed rough IgE <0.10 0.00 - 0.34 kUnits/L Blood 05/06/2025 3:16 PM CDT 05/06/2025 5:32 PM CDT Jeyson Calhoun MD PhD LAB BLOOD ORD ERABLES Final Result Performing Organization Address City/[facility] Co de Phone Number [facility] [place] [address] * Allergen Nettle (weed) IgE (05/06/2025 3:16 PM CDT) Nettle IgE <0.10 0.00 - 0.34 kUnits/L Blood 05/06/2025 3:16 PM CDT 05/06/2025 5:32 PM CDT Jeyson Calhoun MD PhD LAB BLOOD ORD ERABLES Final Result Performing Organization Address [facility] [place] [address] * Allergen Blanco's quarter (weed) IgE (05/06/2025 3:16 PM CDT) Blanco's quarters IgE <0.10 0.00 - 0.34 kUnits/L Blood 05/06/2025 3:16 PM CDT 05/06/2025 5:32 PM CDT Jeyson Calhoun MD PhD LAB BLOOD ORD ERABLES Final Result Performing Organization Address [facility] de Phone Number [facility] [place] [address] * Allergen Roberto grass (grass) IgE (05/06/2025 3:16 PM CDT) Roberto grass IgE <0.10 0.00 - 0.34 kUnits/L Blood 05/06/2025 3:16 PM CDT 05/06/2025 5:32 PM CDT Jeyson Calhoun MD PhD LAB BLOOD ORD ERABLES Final Result Performing Organization Address [facility] Co de Phone Number [facility] [place] [address] * Allergen Melida grass (grass) IgE (05/06/2025 3:16 PM CDT) Melida grass IgE <0.10 0.00 - 0.34 kUnits/L Blood 05/06/2025 3:16 PM CDT 05/06/2025 5:32 PM CDT Jeyson Calhoun MD PhD LAB BLOOD ORD ERABLES Final Result Performing Organization Address [facility] Co de Phone Number [facility] Department [place] [address] * Allergen Economy (tree) IgE (05/06/2025 3:16 PM CDT) Economy (tree) IgE <0.10 0.00 - 0.34 kUnits/L Blood 05/06/2025 3:16 PM CDT 05/06/2025 5:32 PM CDT Jeyson Calhoun MD PhD LAB BLOOD ORD ERABLES Final Result Performing Organization Address [facility] Co de Phone Number [facility] Department [place] [address] * Allergen Tracy sammarinese (tree) IgE (05/06/2025 3:16 PM CDT) Tracy IgE <0.10 0.00 - 0.34 kUnits/L Blood 05/06/2025 3:16 PM CDT 05/06/2025 5:32 PM CDT Jeyson Calhoun MD PhD LAB BLOOD ORD ERABLES Final Result Performing Organization Address City/[facility] Co de Phone Number [facility] Department [place] [address] * Allergen Maple/Box elder (tree) IgE (05/06/2025 3:16 PM CDT) Maple/box elder IgE <0.10 0.00 - 0.34 kUnits/L Blood 05/06/2025 3:16 PM CDT 05/06/2025 5:32 PM CDT Jeyson Calhoun MD PhD LAB BLOOD ORD ERABLES Final Result [facility] Department [place] [address] * Allergen Gildford red (tree) IgE (05/06/2025 3:16 PM CDT) Pathologist [facility] [place] IgE <0.10 0.00 - 0.34 kUnits/L Blood 05/06/2025 3:16 PM CDT 05/06/2025 5:32 PM CDT Jeyson Calhoun MD PhD LAB BLOOD ORD ERABLES Final Result Performing Organization Address [facility] Co de Phone Number [facility] Department [place] [address] * (ABNORMAL) Comprehensive metabolic panel (05/06/2025 3:16 PM CDT) [facility] Sodium 143 135 - 145 mmol/L Potassium, pl 4.5 3.3 - 4.9 mmol/L [facility] Chloride 103 97 - 110 mmol/L [facility] CO2 31 22 - 32 mmol/L [facility] Anion gap 9 2 - 15 mmol/L [facility] BUN 14 6 - 25 mg/dL [facility] Creatinine 1.31(H) 0.80 - 1.30 mg/dL [facility] Glucose 71 70 - 199 mg/dL [facility] Comment: Interpretive Data Fasting glucose >/= 126 mg/dl is diagnostic for diabetes. Fasting is defined as no caloric intake for at least 8 hours. Fasting glucose between 100 mg/dl to 125 mg/dl is diagnostic of prediabetes. In a patient with classic symptoms of hyperglycemia or hyperglycemic crisis, a random glucose >/= 200 mg/dl is diagnostic for diabetes. In the absence of unequivocal hyperglycemia, results should be confirmed by repeat testing. The classification and Diagnosis of Diabetes Diabetes Care 2021; 46: S19-S40. Current interpretive data was last revised 2022. Calcium 9.9 8.5 - 10.3 mg/dL [facility] Bilirubin, total 0.6 0.1 - 1.2 mg/dL [facility] Protein, pl 7.2 6.5 - 8.5 g/dL [facility] Albumin 4.5 3.5 - 5.0 g/dL [facility] Alk phos 66 40 - 130 Units/L [facility] ALT 60(H) 7 - 55 Units/L [facility] AST 40 10 - 50 Units/L [facility] Blood 05/06/2025 3:16 PM CDT 05/06/2025 5:32 PM CDT Jeyson Calhoun MD PhD LAB BLOOD ORD ERABLES Final Result [facility] Department [place] [address] from Last 3 Months Insurance [facility] Care Teams Sat Tutor Relationship Specialty Start Date End Date Ghislaine Valencia DO [address] [place] [address] PCP - General Family Medicine 03/17/25
--- OUTSIDE RECORDS SUMMARY | 2025-05-21 09:53 | XMS_ITS | Clinical Summary ---
Author Organization [facility] [employer] Address [address] [facility] [place] [address] Care Team Providers Care Devops Solutions Architect Name Role Phone Leon Meadows MD Unavailable [phone] Ghislaine Valencia DO Primary Care Provider [phone] Source Comments [facility],non-owned Affiliates and Associated Physician Practices is amultiple site organization consisting of ambulatory clinics and hospital sitesin [place], [place], [place] and [place]. This disclosure is being madepursuant to the Care Everywhere program and may not contain all information available regarding this patient. 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 14 day supply. 40 g 4 04/24/20 25 Discontin ued(List Clean-Up) lisdexamfetamine (Vyvanse) 50 MG capsuleIndication s:ADHD (attention deficit hyperactivity disorder) evaluation Take 1 (one) capsule by mouth every morning 30 capsule 5 05/06/20 25 Discontin ued(Reord er) Active Problems Problem Noted Date Diagnosed Date Low testosterone in male 07/21/2023 ADHD (attention deficit hyperactivity disorder) evaluation 02/24/2023 Chronic rhinitis 11/24/2021 HTN (hypertension) 05/31/2018 HLD (hyperlipidemia) 05/31/2018 BMI 32.0-32.9,adult 05/31/2018 Encounters * This document contains information received from the source organization and may not represent a complete record from that organization. 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 04/22/2025 Results Follow-Up [facility] - Dermatology [address] [place] [phone] Joleen Maharaj MD 04/18/2025 9:20 AM CDT Office Visit [facility] [address] [facility], [place] [address] Joleen Maharaj MD Neoplasm of uncertain behavior of skin (Primary Dx); History of basal cell carcinoma; Actinic keratosis; Lentigines; Multiple benign nevi of upper extremity, lower extremity, and trunk; Seborrheic keratoses 04/18/2025 Travel 03/25/2025 Travel from Last 3 Months Immunizations Immunization [...] Date Recorded Patient Health Questionnaire-2 Score 2 05/13/2025 Sex and Gender Information Value Date Recorded Sex Assigned at Male 03/25/2022 7:31 PM CDT Legal Sex Male 4:26 PM CDT Gender Identity Male 03/25/2022 7:31 PM CDT Sexual Orientation Not on file Last Filed Vital Signs Vital Sign Reading Time Taken Comments Blood Pressure 133/95 05/13/2025 2:58 PM CDT Pulse 88 05/13/2025 2:58 PM CDT Temperature 35.9 C (96.7 F) 12/21/2023 1:52 PM CDT Respiratory Rate - - Oxygen Saturation 99% 05/13/2025 2:58 PM CDT Inhaled Oxygen Concentration - - Weight 99.3 kg (219 lb) 05/13/2025 2:58 PM CDT Height 195.6 cm (6' 5) 08/20/2024 9:23 AM BEHAVIORAL INSTRUCTOR Body Mass Index 25.97 08/20/2024 9:23 AM BEHAVIORAL INSTRUCTOR Plan of Treatment Upcoming Encounters Date Type Department Care Team (Late st Contact Info) Description 10/03/2025 10:40 AM BEHAVIORAL INSTRUCTOR Office Visit [facility] Dermat[facility] [facility], [place] [phone] [address] [facility] [facility] 3L [place] [phone] Health Maintenance Due Date Last Done Comments COLOGUARD (AGES 45-75) - COLON CA SCREENING 1969 COLON MONITORING 1969 COLONOSCOPY [...] VACCINE (1 of 2) 2019 COVID-19 VACCINE ( season) 2024 05/05/2022, 08/25/2021, 01/21/2021, Additional history exists SCREENING FOR DIABETES 04/01/2025 2, 04/01/2022, 05/31/2018 INFLUENZA VACCINE (#1) 2025 4, 07/26/2024, 07/21/2023, Additional history exists DEPRESSION SCREENING Completed 10/01/2024, 08/20/20 24 HIB VACCINE Aged Out No longer eligi ble based on patient's age to complete this topic HPV VACCINE Aged Out No longer eligi ble based on patient's age to complete this topic MENINGOCOCCAL (Group B) VACCINE SHARED DECISION-MAKING Aged Out No longer eligible based on patient's age to complete this topic MENINGOCOCCAL GROUPS A/C/Y/W VACCINE Aged Out No longer eligible based on patient's age to complete this topic Procedures Procedure Name Priority Date/Time Associated Diagnosis Comments NC TANGNTL BX SKIN SINGLE LES Routine 04/18/2025 12:05 PM CDT Neoplasm of uncertain behavior of skin NC DESTROY PREMALIG LESION, 2-14 Routine 04/18/2025 12:04 PM CDT Actinic keratosis NC DESTROY PREMALIG LESION, 1ST LESION Routine 04/18/2025 12:04 PM CDT Actinic keratosis DERMATOPATHOLOGY Routine 04/18/2025 10:0 0 AM CDT Neoplasm of uncertain behavior of skin HEMOGLOBIN A1C - POINT OF CARE (AMB) Routine 05/31/2018 BMI 32.0-32.9,adult from Last 3 Months or Most Recently Relevant to Health Maintenance Results * NC TANGNTL BX SKIN SINGLE LES (04/18/2025 12:05 PM CDT) Narrative Joleen Maharaj MD - 04/18/2025 12:05 PM CDT Joleen Maharaj MD 04/23/2025 8:48 PM Risks, benefits and alternatives to shave biopsy were discussed with the patient. Verbal consent was obtained. Encounter Diagnoses Name Primary? Neoplasm of uncertain behavior of skin Yes History of basal cell carcinoma Actinic keratosis Lentigines Multiple benign nevi of upper extremity, lower extremity, and trunk Seborrheic keratoses Location: left cheek Skin prep: alcohol Anesthesia: 1% lidocaine with epinephrine Hemostasis: monopolar electrocoagulation Dressing and wound care discussed. Specimen(s) placed in a patient labeled container and sent to [facility] Dermatopathology. Patient agrees to phone call for results and message if not available. Ale Arthur DO us Joleen Maharaj MD PROCEDURE/MINOR SURGIC AL ORDERABLES Final Result * NC DESTROY PREMALIG LESION, 1ST LESION, NC DESTROY PREMALIG LESION, 2-14 (04/18/2025 12:04 PM CDT) Narrative Joleen Maharaj MD - 04/18/2025 12:04 PM CDT Joleen Maharaj MD 04/23/2025 8:48 PM Diagnosis and treatment options discussed. Cryotherapy (Liquid Nitrogen) to 2 AK x 6-7 seconds each. Number of cycles: 1. Wound care reviewed. Joleen Maharaj MD PROCEDURE/MINOR SURGIC AL ORDERABLES Final Result * DERMATOPATHOLOGY (04/18/2025 10:00 AM CDT) Case Report Dermatopathology Report Case: [id number] Authorizing Provider: Joleen Maharaj, Collected: 04/18/2025 10:00 AM Ordering Location: [facility] - Received: 04/18/2025 10:00 AM [...] characteristic determined by the Dermatopathology Laboratory at [facility], directed by Dr. Regine He. These tests need not be, and therefore are not, approved by the [place] Food and Drug Administration. The tests are used for clinical purposes. Billing Codes Specimen Charges Stain Charges 08676 1 5 2:48 PM CDT DERMATOPATHOLOGY LABORATORY Embedded Images 5 2:48 PM CDT DERMATOPATHOLOGY LABORATORY Pathology/Cytolo gy TISSUE SPECIMEN FROM SKIN / Unknown Collection / Unknown 04/18/2025 10:00 AM CDT 04/18/2025 10:00 AM CDT Joleen Maharaj MD LAB - PATHOLOGY/CYTOLO GY ORDERABLES Final Result DERMATOPATHOLOGY LABORATORY [facility] Department of Dermatology [address], [address] [phone] * HEMOGLOBIN A1C - POINT OF CARE (AMB) (05/31/2018) Hemoglobin A1c POCT 5.3 % QC Verified Yes Blood BLOOD SPECIMEN / Unknown 05/31/2018 Poncho Rebollar MD LAB - POINT OF CARE ORDERABLES F inal Result from Last 3 Months or Most Recently Relevant to Health Maintenance Insurance [facility] Care Teams Devops Solutions Architect Relationship Specialty Start Date End Date Ghislaine Valencia DO [address] [place] [phone] PCP - General Family Medicine 10/11/24 Leon Meadows MD [address] [place] [address] Endocrinology 05/29/24
--- OUTSIDE RECORDS SUMMARY | 2025-05-21 09:53 | XMS_ITS | Encounter Summary ---
Author Organization [facility] Address [address] [place] [address] Phone Care Team Providers Care Decorating Consultant Name Role Phone Adolfo Carnes Primary Care Provider [phone] Jeanie Chan MD Primary Care Provider Adolfo Carnes Primary Care Provider [phone] No, Physician Primary Care Provider [phone] Ghislaine Valencia DO Primary Care Provider Encounter [...] on filedocumented in this encounter Care Teams Decorating Consultant Relationship Specialty Start Date End Date Adolfo Carnes PA PCP - General Physician Children'S Book Author 09/13/21 11/24/21 Jeanie Chan MD [address] [facility] [address] [place] [address] PCP - General 11/25/21 03/10/22 Adolfo Carnes PA PCP - General Physician Children'S Book Author 03/11/22 06/20/24 No, Physician PCP - General 01/29/25 03/16/25 Ghislaine Valencia DO [address] [place] [address] PCP - General Family Medicine 03/17/25 documented as of this encounter
--- OUTSIDE RECORDS SUMMARY | 2025-05-21 09:53 | XMS_ITS | Encounter Summary ---
Author Organization [facility] Address [address] [place] [address] Phone Care Team Providers Care Tool Drawing Checker Name Role Phone Ghislaine Valencia DO Primary Care Provider [phone] Encounter Details Date Type Department Care Team (Latest Contact Info) Description 05/12/2025 Results Follow-Up [facility] Medicine Allergy and Immunology [address] [facility] [address] [place] [address] Jeyson Calhoun MD PhD [address] [place] [address] CBC with auto differential, Comprehensive metabolic panel, Tryptase, Additional followed-up results: 30 Social History Tobacco Use Types Packs/Day Years Used Date Smoking Tobacco: Never Smokeless Tobacco: Never AUDIT-C Answer Date Recorded Q1: How often [...] on file documented as of this encounter Visit Diagnoses Not on filedocumented in this encounter Care Teams Tool Drawing Checker Relationship Specialty Start Date End Date Ghislaine Valencia DO [address] [place] [address] PCP - General Family Medicine 03/17/25 documented as of this encounter
--- OUTSIDE RECORDS SUMMARY | 2025-05-21 09:53 | XMS_ITS | Encounter Summary ---
Author Organization [facility] Address [address] [facility] [place] [address] Care Team Providers Care Cement Mason Maintenance Name Role Phone Leon Meadows MD Unavailable [phone] Ghislaine Valencia DO Primary Care Provider Encounter Details Date Type Department Care Team (Late st Contact Info) Description 10/29/2024 Telephone [facility] Dermatology [address] [place] [address] [place] [phone] None, Physician [address] [place] [address] Social History Tobacco Use Types Packs/Day Years [...] Martinez. 1p>11a - 10/29/2024. Left direct number. TRIC MOTOR CONTROLS ASSEMBLER documented in this encounter Plan of Treatment Upcoming Encounters Date Type Department Care Team (Late st Contact Info) Description 10/03/2025 10:40 AM ELECTRIC MOTOR CONTROLS ASSEMBLER Office Visit [facility] Derm[facility]ology [address] [facility], [place] [phone] Joleen Maharaj MD [address] [facility] 3L [place] [phone] documented as of this encounter Visit Diagnoses Not on filedocumented in this encounter Care Teams Cement Mason Maintenance Relationship Specialty Start Date End Date Ghislaine Valencia DO [address] [place] [phone] PCP - General Family Medicine 10/11/24 Leon Meadows MD [address] [place] [address] [address]L [place] [address] Endocrinology 05/29/24 documented as of this encounter
== END 2025-05-21 09:38 | disposition home or self-care (01) ==
LOC: ANHGOSHLAB 09:37
PROVIDERS: PCP Family Medicine; Visit Provider Otolaryngology
DX: J32.2 Chronic ethmoidal sinusitis (principal); J01.01 Acute recurrent maxillary sinusitis
CPT/HCPCS: 87070; 87075; 87205

== ENCOUNTER 2025-09-16 12:00 | Outpatient (CLI) | payer OTHER, SELFPAY ==
--- NOTE | ~2025-09-16 | XR_ITS ---
EXAMINATION: XR chest 2V 09/16/2025 12:30 INDICATION: Chronic abnormal sputum PROCEDURE: 2 view chest COMPARISON: Comparison to multiple prior studies sequentially, with oldest reviewed study dated 09/26/2017. FINDINGS: The lungs are clear. The cardiomediastinal silhouette is within normal limits. There are no pleural effusions. There is no pneumothorax suspected. IMPRESSION: 1: NO ACUTE CARDIOPULMONARY DISEASE. Reviewed, dictated and finalized at location O. 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
--- OUTSIDE RECORDS SUMMARY | 2025-09-16 12:09 | XMS_ITS | Encounter Summary ---
Author Organization [facility] Address [address] [place] [address] Phone Care Team Providers Care Block Mechanic Name Role Phone Adolfo Carnes Primary Care Provider [phone] Jeanie Chan MD Primary Care Provider Adolfo Carnes Primary Care Provider [phone] No, Physician Primary Care Provider Ghislaine Valencia [...] on filedocumented in this encounter Care Teams Block Mechanic Relationship Specialty Start Date End Date Adolfo Carnes PA PCP - General Physician Accountant Budget 09/13/21 11/24/21 Jeanie Chan MD [address] [facility] [address] [address] PCP - General 11/25/21 03/10/22 Adolfo Carnes PA PCP - General Physician Accountant Budget 03/11/22 06/20/24 No, Physician PCP - General 01/29/25 03/16/25 Ghislaine Valencia DO [address] [place] [address] PCP - General Family Medicine 03/17/25 documented as of this encounter
--- OUTSIDE RECORDS SUMMARY | 2025-09-16 12:09 | XMS_ITS | Clinical Summary ---
Author Organization [facility] Address [address] [place] [address] Care Team Providers Care Printer Machine Name Role Phone Leon Meadows MD Unavailable [phone] Ghislaine Valencia DO Primary Care Provider [phone] Source Comments [facility],non-owned Affiliates and Associated Physician Practices is amultiple site organization consisting of ambulatory clinics and hospital sitesin [place], [place], [place] and [place]. This disclosure is being madepursuant to the Care Everywhere program and may not contain all information available regarding this patient. Last updated 18.[facility] Allergies Active Allergy Reactions Criticality Noted Date [...] 1 (one) tablet by mouth once daily 05/03/20 20 Active famotidine (PEPCID) 40 MG tablet Take 2 (two) tablets by mouth 2 times daily 10/19/19 22 Active metroNIDAZOLE (Metrogel) 0.75 % gelIndications:Ro sacea Apply to face twice daily for pimples. 30 days supply. 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 Please call [phone] 30 capsule 09/08/20 25 Active lisdexamfetamine (Vyvanse) 50 MG capsuleIndication s:ADHD (attention deficit hyperactivity disorder) evaluation Take 1 (one) capsule by mouth every morning Follow up appointment needed before additional prescriptions. Please call [phone] 30 capsule 08/08/20 25 025 Discontin ued(Reord er) Active Problems Problem Noted Date Diagnosed Date Abnormal sputum 07/01/2025 Acute recurrent maxillary sinusitis 07/01/2025 ADHD 07/01/2025 Allergic reaction 07/01/2025 Anxiety 07/01/2025 Chronic ethmoidal sinusitis 07/01/2025 Low libido 07/01/2025 Polyarthralgia 07/01/2025 PND (post-nasal drip) 07/01/2025 Encounter for hepatitis C sc reening test for low risk patient 07/01/2025 Encounter for preventative adult health care exa mination 07/01/2025 Screening for diabetes mellitus 07/01/2025 Allergic rhinitis 07/01/2025 Hyperlipemia 07/01/2025 Hypertension 07/01/2025 Low testosterone in male 07/21/2023 ADHD (attention deficit hyperactivity disorder) evaluation 02/24/2023 Chronic rhinitis 11/24/2021 HTN (hypertension) 05/31/2018 HLD (hyperlipidemia) 05/31/2018 BMI 32.0-32.9,adult 05/31/2018 Encounters * This document contains information received from the source organization and may not represent a complete record from that organization. 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 07/01/2025 Travel from Last 3 Months Immunizations Immunization [...] Date Recorded Patient Health Questionnaire-2 Score 1 09/10/2025 Sex and Gender Information Value Date Recorded Sex Assigned at Male 03/25/2022 7:31 PM CDT Legal Sex Male 4:26 PM CDT Gender Identity Male 03/25/2022 7:31 PM CDT Sexual Orientation Not on file Last Filed Vital Signs Vital Sign Reading Time Taken Comments Blood Pressure 140/87 09/10/2025 10:56 AM LIVING NURSE Pulse 70 09/10/2025 10:56 AM LIVING NURSE Temperature 35.9 C (96.7 F) 12/21/2023 1:52 PM CDT Respiratory Rate - - Oxygen Saturation 98% 09/10/2025 10:56 AM LIVING NURSE Inhaled Oxygen Concentration - - Weight 102.5 kg (226 lb) 09/10/2025 10:56 AM LIVING NURSE Height 195.6 cm (6' 5) 08/20/2024 9:23 AM LIVING NURSE Body Mass Index 26.8 08/20/2024 9:23 AM LIVING NURSE Plan of Treatment Upcoming Encounters Date Type Department Care Team (Late st Contact Info) Description 10/03/2025 10:40 AM LIVING NURSE Office Visit [facility] - Dermatology [address] [place] [address] Joleen Maharaj MD [address] [facility] [address] [place] [address] Health Maintenance Due Date Last Done Comments [...] of 2) 2019 COVID-19 VACCINE ( season) 2025 05/05/2022, 08/25/2021, 01/21/2021, Additional history exists INFLUENZA VACCINE (#1) 2025 4, 07/26/2024, 07/21/2023, [...] Name Priority Date/Time Associated Diagnosis Comments NC REPAIR INTERMEDIATE F/E/E/N/L&/MUC 2.6-5.0 CM Routine 07/01/2025 11:20 AM CDT 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 NC MOHS MICROGRAPHIC H/N/H/F/G 1ST STAGE 5 BLOCKS Routine 07/01/2025 11:20 AM CDT 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 from Last 3 Months Results * NC MOHS MICROGRAPHIC H/N/H/F/G 1ST STAGE 5 BLOCKS, NC REPAIR INTERMEDIATE F/E/E/N/L&/MUC 2.6-5.0 CM (07/01/2025 11:20 AM CDT) Narrative Eliud Martinez MD - 07/01/2025 11:20 AM CDT Eliud Martinez MD 07/01/2025 11:40 AM Mohs Micrographic Surgery Operative Note Procedure: Mohs micrographic surgery Date of service: 07/01/2025 Location: left cheek 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 No other physician was involved in the cancer removal or pathology interpretation. Assistants: Osbaldo Christy MD Indications for Mohs Surgery Removal of the patient's tumor is complicated by the following clinical features: Clinical area critical for tissue conservation (Area M: cheeks, forehead, scalp, neck, jawline, pretibial surface). Based on my medical judgement, Mohs surgery is the most appropriate treatment for this cancer compared to other treatments. I discussed alternative treatments to Mohs surgery and specifically discussed the risks and benefits of curettage, excision with permanent sections, and foregoing treatment. The rationale for Mohs was explained to the patient and consent was obtained. The risks, benefits and alternatives to therapy were discussed in detail. Specifically, the risks of infection, scarring, bleeding, prolonged wound healing, incomplete removal, allergy to anesthesia, nerve injury and recurrence were addressed. Prior to the procedure, the treatment site was clearly identified and confirmed by the patient. All components of [place] Protocol/PAUSE Rule completed. STAGE I: The patient was placed on the operating table. The cancer was identified and outlined. The entire surgical field was prepped with hibiclens. The surgical site was anesthetized using Lidocaine 1% with epinephrine 1:100,000 buffered with sodium bicarbonate 8.4% in a 1:10 ratio.The area of clinically apparent tumor was debulked with a 2 mm curette. The layer of tissue was then surgically excised using a #15 blade and was then transferred onto a specimen sheet maintaining the orientation of the specimen. Hemostasis was obtained using monopolar electrodesiccation. The wound site was then covered with a dressing while the tissue samples were processed for examination. The specimen was oriented, mapped and divided. Each section was then inked and processed in the Mohs lab using the Mohs protocol and submitted for frozen section. The histopathologic sections were reviewed by the surgeon in conjunction with the reference map. Total blocks: 1 Total slides: 3 Frozen sections were examined by the surgeon. No additional tumor was identified. No additional histologic findings appreciated. Cell morphology: N/A. No tumor seen at the margin. Pathological pattern: N/A. No tumor seen. Depth of invasion: N/A. No tumor seen. Scar tissue: Not Present Perineural invasion: Not Present Inflammation obscuring possible tumor presence: Not Present [facility] CLIA # [id number] Mohs cytogenetics laboratory manager: Luh Dumont MD REPAIR: Intermediate Primary Surgeon: Eliud Martinez MD Ec Teacher: Osbaldo Christy MD Repair Size: 3.2 cm Sutures: 5-0 monocryl, 5-0 fast absorbing gut The defect was identified and a marking pen was used to plan the repair. The area was infiltrated with Lidocaine 1% with epinephrine 1:100,000 buffered with sodium bicarbonate 8.4% in a 1:10 ratio, prepped with hibiclens and draped with sterile towels. The wound was debeveled and undermined widely. Cones were excised within relaxed skin tension lines on both sides of the defect. Hemostasis was obtained using monopolar electrodesiccation. The dermis and subcutaneous tissue were then approximated using buried vertical mattress sutures. Running percutaneous sutures were carefully placed for maximum eversion and meticulous wound edge approximation. Careful attention was paid to avoid distorting any nearby free margins. The wound was cleansed with saline and ointment was applied along the wound surface. A sterile pressure dressing was applied. Wound care instructions were given verbally and in writing. The patient left the operating suite in stable condition. Patient was informed that additional refinement of the resulting surgical scar may be used as a second stage of this reconstruction. No postoperative medications were prescribed. The patient will follow up with their primary sales floor team member. Osbaldo Christy MD MSDO Fellow A procedure was performed. I was present for the alcocer portions of the procedure and was always immediately available. I have reviewed the note and edited it as necessary. Date of Service : 07/01/2025 Eliud Martinez MD Eliud Martinez MD PROCEDURE/MINOR SURGICAL ORDER [place] Final Result from Last 3 Months Insurance [facility] Care Teams Printer Machine Relationship Specialty Start Date End Date Ghislaine Valencia DO [address] [place] [address] PCP - General Family Medicine 10/11/24 Leon Meadows MD [address] [place] [address] Endocrinology 05/29/24
--- OUTSIDE RECORDS SUMMARY | 2025-09-16 12:09 | XMS_ITS | Clinical Summary ---
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 5 Active buPROPion XL (WELLBUTRIN XL) 150 mg 24 hr tablet Take 1 tablet (150 mg total) by mouth daily 5 Active testosterone micronized, bulk, 100 % powder 0 5 Active famotidine (PEPCID) 20 mg tabletIndication s:Allergic rhinitis, unspecified seasonality, unspecified trigger Take 1 tablet (20 mg total) by mouth 2 (two) times a day 60 tablet 3 5 05/06/20 26 Active cetirizine (Allergy Relief, cetirizine,) 10 mg tabletIndication s:Allergic rhinitis, unspecified seasonality, unspecified trigger TAKE 1 TABLET BY MOUTH THREE TIMES DAILY 90 tablet 5 Active Active Problems Problem Noted Date Diagnosed Date Chronic rhinitis 11/24/2021 Adverse food reaction 11/24/2021 HLD (hyperlipidemia) 05/31/2018 HTN (hypertension) 05/31/2018 Immunizations Immunization Administration Dates Next Due Influenza, [...] CDT Respiratory Rate 18 11/24/2021 8:34 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 Oxygen Saturation 100% 05/06/2025 1:42 PM CDT [...] Well Visit/Exam 18-64 1987 Covid-19 Vaccine ( season) 2025 07/20/2023, 05/05/2022, 08/25/2021, Additional history exists Influenza Vaccine (#1) 2025 , 07/26/2024, 07/21/2023, Additional history exists Zoster Vaccine Completed 03/06/2024, 01/04/2024 Pneumococcal vaccine <65 Aged Out No longer eligible based on patient's age to complete this topic Insurance [facility] Care Teams Diesel Crane Operator Relationship Specialty Start Date End Date Ghislaine Valencia DO [address] [place] [address] PCP - General Family Medicine 03/17/25
--- OUTSIDE RECORDS SUMMARY | 2025-09-16 12:09 | XMS_ITS | Encounter Summary ---
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 1p>11a - 10/29/2024. Left direct number. CHOOL AIDE documented in this encounter Plan of Treatment Upcoming Encounters Date Type Department Care Team (Late st Contact Info) Description 10/03/2025 10:40 AM PRESCHOOL AIDE Office Visit [facility] - Dermatology [address] [place] [address], [place] [address] Joleen Maharaj MD [address] [place] [address] [address] [place] [address] documented as of this encounter Visit Diagnoses Not on filedocumented in this encounter Care Teams Laundry Laborer Relationship Specialty Start Date End Date Ghislaine Valencia DO [address] [place] [phone] PCP - General Family Medicine 10/11/24 Leon Meadows MD [address] [place] [address] [address] [place] [address] Endocrinology 05/29/24 documented as of this encounter
[2025-09-17 11:08] LABS: Anti-CCP Ab, IgG/IgA 7 units (0-19)
[2025-09-18 14:08] LABS: Histoplasma Gal'mannan Ag, Ur Negative (<0.2 ng/mL)
[2025-09-19 09:08] LABS: ANA by IFA Rfx Titer/Pattern Negative (.)
== END 2025-09-16 12:01 | disposition home or self-care (01) ==
LOC: ANHLAB 12:02
PROVIDERS: PCP Family Medicine; Visit Provider Internal Medicine Critical Care Medicine
DX: R09.3 Abnormal sputum (principal); M35.9 Systemic involvement of connective tissue, unspecified; R05.9 Cough, unspecified
CPT/HCPCS: 71046; 86038; 86200; 86480; 87385

== ENCOUNTER 2025-09-17 10:35 | Outpatient (CLI) | payer OTHER, SELFPAY | END 2025-09-17 10:36 | disposition home or self-care (01) | LOC: ANHLAB 10:37 | PROVIDERS: PCP Family Medicine; Visit Provider Internal Medicine Critical Care Medicine | DX: R05.9 Cough, unspecified (principal) | CPT/HCPCS: 87070; 87205; 87206 ==